=== PATIENT | male | born 2005 | race Caucasian/White ===

== ENCOUNTER 2024-02-01 14:32 | Outpatient (REF) | payer MEDICAID, SELFPAY ==
--- NOTE | ~2024-02-01 | XR_ITS ---
EXAMINATION: XR ANKLE, LEFT CLINICAL INFORMATION: Inversion injury COMPARISON: None available. TECHNIQUE: AP, lateral, and mortise views of the left ankle. FINDINGS: There is lateral soft tissue swelling and a ankle effusion present. No fractures or dislocations. The ankle mortise appears stable XR/XR ankle LT min 3V IMPRESSION: Soft tissue swelling and ankle effusion without fracture.
== END 2024-02-01 14:33 | disposition home or self-care (01) ==
LOC: HO.HHCX 14:32
PROVIDERS: Visit Provider Internal Medicine
DX: S93.402A Sprain of unspecified ligament of left ankle, initial encounter (principal)
CPT/HCPCS: 73610